=== PATIENT | male | born 1965 | race African-American/Black ===

== ENCOUNTER 2020-02-17 11:41 | Emergency (ER) | payer OTHER, SELFPAY ==
[2020-02-17 12:14] VITALS: BP 146/94; PULSE 114; RESP 18; TEMP 37.4; O2SAT 98
[2020-02-17 12:32] LABS: Basophils Percent Auto 0.7 % (0.2-1.2); Eosinophils Percent Auto 0.4 % (0-4.4); Hematocrit 46.5 % (42.0-52.0); Hemoglobin 16.2 g/dL (14.0-18.0); Immature Granulocyte Absolute 0.01 K/mm3 (0.00-0.031); Immature Granulocyte Percent A 0.2 % (0-0.5); Lymphocytes Absolute Auto 2.15 K/mm3 (0.9-3.2); Lymphocytes Percent Auto 38.1 % (18.3-44.2); Mean Corpuscular HGB Conc 34.8 g/dl (32-36); Mean Corpuscular Hemoglobin 30.9 pg (26-34); Mean Corpuscular Volume 88.7 fl (80-100); Mean Platelet Volume 9.8 fl (7.4-10.4); Monocytes Absolute Auto 0.6 K/mm3 (0.1-0.6); Monocytes Percent Auto 10.4 % (2.6-8.5); Neutrophils Absolute Auto 2.8 K/mm3 (1.3-6.7); Neutrophils Percent Auto 50.2 % (45.5-73.1); Platelet Count Result 268 k/mm3 (150-375); Red Blood Count 5.24 M/mm3 (4.6-6.20); Red Cell Distribution Width 11.9 % (11.5-14.5); White Blood Count 5.7 K/mm3 (4.5-10.0)
[2020-02-17 12:46] LABS: Alanine Aminotransferase 48 U/L (4-50); Alkaline Phosphatase 91 U/L (38-126); Aspartate Amino Transferase 38 U/L (17-59); Bilirubin,Total 0.8 mg/dL (0.2-1.3); Blood Urea Nitrogen 14 mg/dL (9-20); Calcium 9.7 mg/dL (8.4-10.2); Carbon Dioxide 25 mmol/L (22-30); Chloride 96 mmol/L (98-107); Estimated CRCL calculation 108 ml/min; Estimated Glomerular Filt Rate > 60; Glucose 109 mg/dL (75-110); Lipase 51 U/L (23-300); Potassium 4.3 mmol/L (3.4-5.0); Sodium 134 mmol/L (137-145)
[2020-02-17 12:51] LABS: Add Urine Microscopic? YES; Appearance Urine Clear (Clear); Bilirubin Urine Negative (Negative); Blood Urine Negative (Negative); Color Urine Yellow (Yellow); Glucose Urine UA Negative (Negative); Ketones Urine 1+ mg/dL (Negative); Leukocyte Esterase Ur Negative LEU/UL (Negative); Mucus Urine Heavy /lpf; Nitrate Urine Negative (Negative); Protein Urine Negative (Negative); Specific Grav Ur 1.018 (1.001-1.035); WBC Urine 0-3 /hpf
--- NOTE | 2020-02-17 14:47 | PC.NURSE ---
upon initial assessment in room, pt states that he is here for a check up. and that he might be a diabetic, I don't know.
--- NOTE | 2020-02-17 15:14 | ED.ABDPAIN ---
HPI - Abdominal Pain General Chief Complaint: Abdominal Pain <Mike Reyes PA-C - Last Filed: 02/17/20 15:20> Stated Complaint: abd pain with nausea <Mike Reyes PA-C - Last Filed: 02/17/20 15:20> Time Seen by Provider: 02/17/20 14:41 <Mkie Reyes PA-C - Last Filed: 02/17/20 15:20> Source: patient <Mike Reyes PA-C - Last Filed: 02/17/20 15:20> Mode of arrival: ambulatory <Mike Reyes PA-C - Last Filed: 02/17/20 15:20> Limitations: no limitations <Mike Reyes PA-C - Last Filed: 02/17/20 15:20> History of Present Illness HPI narrative: Patient is a 54-year-old male who presents to emergency department for evaluation of wanting to be checked out patient notes he has follow-up with primary care tomorrow patient was concerned that he may have diabetes denies any symptoms or complaints. Patient has not seen anybody for this complaint. <Mike Reyes PA-C - Last Filed: 02/17/20 15:20> Review of Systems Review of Systems: All systems reviewed & are unremarkable except as noted in HPI and below <Mike Reyes PA-C - Last Filed: 02/17/20 15:20> [facility] Social History Social History: Social History (Updated 02/17/20 @ 15:16 by Mike Reyes PA-C) Smoking status: Never smoker <SHONDA Kitchen Last Filed: 02/17/20 15:20> Exam Narrative: Exam Narrative: GENERAL: Well-appearing, well-nourished, and in no acute distress. HEAD: Normocephalic, atraumatic. EYES: PERRLA and EOMI. ENT: Nares clear, no rhinorrhea or epistaxis. Mucous membranes moist. CHEST: Clear to auscultation. No respiratory distress. No wheezes rales or rhonchi HEART: Regular rate and rhythm. No murmur heard. Normal peripheral pulses. ABDOMEN: Soft, nontender, nondistended EXTREMITIES: Normal range of motion. No edema. SKIN: Warm, dry, no rash. NEURO: No focal deficits. Alert and oriented x3. PSYCH: Normal mood and affect. <Mike Reyes PA-C - Last Filed: 02/17/20 15:20> Course Course Emergency Course: Patient in the room at this time in no distress no complaints felt appropriate for outpatient reevaluation agreeing to follow-up tomorrow with primary care as planned <Mike Reyes PA-C - Last Filed: 02/17/20 15:20> Vital Signs Vital signs: Vital Signs Temperature 99.4 F 02/17/20 12:14 Pulse Rate 114 H 02/17/20 12:14 Respiratory Rate 18 02/17/20 12:14 Blood Pressure 146/94 H 02/17/20 12:14 Pulse Oximetry 98 02/17/20 12:14 Temperature 99.4 F 02/17/20 12:14 Pulse Rate 78 02/17/20 15:33 Respiratory Rate 18 02/17/20 15:33 Blood Pressure 118/58 L 02/17/20 15:33 Pulse Oximetry 100 02/17/20 15:33 <Mike Reyes PA-C - Last Filed: 02/17/20 15:20> Vital Signs Temperature 99.4 F 02/17/20 12:14 Pulse Rate 114 H 02/17/20 12:14 Respiratory Rate 18 02/17/20 12:14 Blood Pressure 146/94 H 02/17/20 12:14 Pulse Oximetry 98 02/17/20 12:14 Temperature 99.4 F 02/17/20 12:14 Pulse Rate 78 02/17/20 15:33 Respiratory Rate 18 02/17/20 15:33 Blood Pressure 118/58 L 02/17/20 15:33 Pulse Oximetry 100 02/17/20 15:33 <Carolyn Lopez MD - Last Filed: 02/17/20 17:22> MDM - Abdominal Pain MDM Narrative Medical decision making narrative: Patient in the emergency department in no distress requesting to be evaluated has no complaints has follow-up with primary care tomorrow wanted to make sure that he did not have diabetes <SHONDA Kitchen Last Filed: 02/17/20 15:20> Lab Data Result diagrams: : 02/17/20 12:22 02/17/20 12:22 <SHONDA Kitchen Last Filed: 02/17/20 15:20> Labs: Lab Results 02/17/20 02/17/20 02/17/20 Range/Units 12:22 12:22 12:29 WBC 5.7 (4.5-10.0) K/mm3 RBC 5.24 (4.6-6.20) M/mm3 Hgb 16.2 (14.0-18.0) g/dL Hct 46.5 (42.0-52.0) % MCV 88.7 (80-100) fl MCH 30.9 (26
[2020-02-17 15:33] VITALS: BP 118/58; PULSE 78; RESP 18; O2SAT 100
== END 2020-02-17 15:33 | disposition home or self-care (01) ==
PROVIDERS: Emergency Provider General Practice
DX: F41.9 Anxiety disorder, unspecified (principal)
CPT/HCPCS: 36415; 80053; 81001; 83690; 85025; 99283